=== PATIENT | female | born 1985 | race Caucasian/White ===

== ENCOUNTER 2016-05-12 09:58 | Day surgery (SDC) | payer BC ==
[~2016-05-12 09:58] MED LIST: RINGERS SOLUTION,LACTATED 1,000 ML IV PRN
[2016-05-12] MEDS ORDERED: RINGERS SOLUTION,LACTATED 1,000 ML IV ONE (10:57)
[2016-05-12] MEDS ORDERED: LIDOCAINE HCL/EPINEPHRINE 50 ML VIAL IJ ONE (11:50)
[2016-05-12] MEDS ORDERED: MORPHINE SULFATE 2 MG/ML DISP.SYRIN IV PRN (12:20)
[2016-05-12] MEDS ORDERED: IBUPROFEN 800 MG TABLET PO PRN (12:21)
[2016-05-12] MEDS ORDERED: oxyCODONE HCL/ACETAMINOPHEN 1 TAB TABLET PO PRN (12:21)
--- NOTE | 2016-05-12 12:23 | OR ---
Operative Report - Dictated Report Narrative: DATE OF PROCEDURE: 05/12/2016 INDICATION: 30-year-old with Mirena IUD for the past 16 months who was recently began having pelvic pain, irregular menses, and recurrent pelvic infections. PREOPERATIVE DIAGNOSIS: Pelvic pain, irregular menses, irritation from Mirena IUD POSTOPERATIVE DIAGNOSIS: Same, partially expelled Mirena IUD PROCEDURE: Hysteroscopy, D&C, removal of Mirena IUD SURGEON: Deann Davis D.O. MANAGER ACCOUNT MANAGEMENT: None ANESTHESIA: IV sedation, Paracervical block ESTIMATED BLOOD LOSS: minimal URINE OUTPUT: not recorded FLUID REPLACEMENT: 250 mL FINDINGS: Distal tip of Mirena IUD extruding from the cervical os with one arm embedded in the upper cervical canal and strings twisted around the body of the IUD. Normal-appearing uterine cavity. Very scant endometrial curettings SPECIMEN(S): Endometrial curettings TECHNIQUE: The patient was taken to the operating room and placed in dorsal lithotomy position after adequate IV sedation was obtained. After sterile prep and drape, the anterior lip of the cervix was grasped with a long Allis clamp. A paracervical block was given using a 1% lidocaine with epinephrine solution. The Mirena IUD was grasped with an Allis clamp and removed in total. The right arm of the Mirena IUD was embedded in the upper cervical canal. This site was easily identified on hysteroscopy. The uterus sounded to 8 cm. The 5 mm hysteroscope was inserted into the uterine cavity with findings as noted above. Using the curet, the entire uterine cavity was curettaged. The hysteroscope was reinserted noting thorough sampling of the entire uterine cavity. Sponge, lap, instrument, needle count correct x 2. DISPOSITION: The patient was transferred to the post anesthesia care unit in good condition.
[2016-05-12] MEDS ORDERED: IBUPROFEN 800 MG TABLET PO ONE (12:28)
[2016-05-12] MEDS ORDERED: oxyCODONE HCL/ACETAMINOPHEN 1 TAB TABLET PO ONE (12:29)
[2016-05-12 13:13] VITALS: BP 113/70
== END 2016-05-12 09:59 | disposition home or self-care (01) ==
LOC: AMB 09:58
PROVIDERS: ATTEND Obstetrics & Gynecology
PROC: 0UPDXHZ Removal of Contraceptive Device from Uterus and Cervix, External Approach (ICD-10-PCS; 2016-05-12)
PROC: 0UDB8ZX Extraction of Endometrium, Via Natural or Artificial Opening Endoscopic, Diagnostic (ICD-10-PCS; principal; 2016-05-12 12:15)
DX: N72 Inflammatory disease of cervix uteri (principal); N92.6 Irregular menstruation, unspecified; R10.2 Pelvic and perineal pain; T83.32XA Displacement of intrauterine contraceptive device, initial encounter; I10 Essential (primary) hypertension; F41.9 Anxiety disorder, unspecified; F32.9 Major depressive disorder, single episode, unspecified; Z68.33 Body mass index [BMI] 33.0-33.9, adult